=== PATIENT | female | born 1985 | race Caucasian/White ===

== ENCOUNTER 2017-09-13 18:33 | Emergency (ER) | payer MEDICAID, SELFPAY ==
[2017-09-13 18:34] VITALS: BP 160/100; PULSE 82; RESP 16; TEMP 37; O2SAT 96; BMI 45.5
--- NOTE | 2017-09-13 18:56 | ED.VISSUMM ---
- ER Visit Summary Date of Service: 09/13/17 Chief Complaint: [] Scalp abscess History of Present Illness: The patient is a 32 F [] complaining of scalp abscess around the right temporal area beginning approximately 4 days ago. Patient also reports an area on the left scalp that she has had for the last 14 years that has reportedly slowly used every day for the last 14 years. Patient denies fevers. Reports she is concerned because she previously became septic from a gluteal abscess that was left untreated for a long period of time. No other complaints at this time. Patient is conversational during history and physical exam. Physical Examination: [] Afebrile, vital signs stable. 32-year-old female no acute distress. Examination of the head reveals early nonfluctuant abscess in the right temporoparietal area. There is a large left likely chronic sebaceous cyst in the left scalp that does not appear cellulitic no obvious signs of discharge. Remainder of physical examination was unremarkable. Test Results: [] None. Emergency Department Course and Treatment: [] Patient given 800 mg orally of ibuprofen, Bactrim DS, Keflex 500 mg. She was also placed on these same medications via prescription with instructions to follow-up with her primary care physician. Treatment Plan: [] Follow-up with PCP and outpatient antibiotic treatment. Disposition: [] Discharge, stable. Impression: [] Scalp abscess This note was generated with [employer] dictation software. It may contain incorrect words, spelling, and punctuation that were not noted in review of the chart prior to signing ED Disposition - Plan for ED Patient: Chief Complaint: Wound Check Referrals: Annie Woody MD [Primary Care Provider] -
--- NOTE | 2017-09-13 18:59 | ED.DEP ---
ED Disposition - Plan for ED Patient: Disposition: Home or Assisted Living Chief Complaint: Wound Check Diagnosis: Abscess Instructions: ED Abscess Abx Tx Only Ch Prescriptions: Cephalexin [Keflex] 500 mg PO Q6 #40 cap Ibuprofen [Ibu] 800 mg PO TID PRN PRN 10 Days #30 tab PRN Reason: Pain Sulfamethoxazole/Trimethoprim [Bactrim Ds Tablet] 1 ea PO BID #20 tab Referrals: Annie Woody MD [Primary Care Provider] -
[2017-09-13] MEDS: Smz/Tmp Ds Tablet 1 TABLET PO (19:05)
[2017-09-13] MEDS: Ibuprofen 400 MG Tablet 800 MG PO (19:05)
[2017-09-13] MEDS: Cephalexin 250 MG Capsule 500 MG PO (19:05)
[2017-09-13 19:08] VITALS: RESP 18
== END 2017-09-13 19:09 | disposition home or self-care (01) ==
LOC: ED 19:07
PROVIDERS: Emergency Provider Emergency Medicine; Family Provider Internal Medicine; PCP Internal Medicine
DX: L02.811 Cutaneous abscess of head [any part, except face] (principal); Z72.0 Tobacco use
CPT/HCPCS: 99283

== ENCOUNTER 2018-03-06 18:28 | Emergency (ER) | payer SELFPAY ==
[2018-03-06 18:30] VITALS: BP 165/83; PULSE 105; RESP 19; TEMP 36.8; O2SAT 97; BMI 43.0
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
[2018-03-06] MEDS: oxyCODONE 5 MG Tablet PO (18:51)
[2018-03-06] MEDS: Ondansetron ODT 4 MG Tablet PO (18:51)
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
== END 2018-03-06 20:02 | disposition home or self-care (01) ==
LOC: ED 19:33
PROVIDERS: Emergency Provider Emergency Medicine; Family Provider Internal Medicine; PCP Internal Medicine
DX: S06.0X0A Concussion without loss of consciousness, initial encounter (principal); S80.02XA Contusion of left knee, initial encounter; S80.01XA Contusion of right knee, initial encounter; Z72.0 Tobacco use; V43.62XA Car passenger injured in collision with other type car in traffic accident, initial encounter; Y93.I9 Activity, other involving external motion; Y92.410 Unspecified street and highway as the place of occurrence of the external cause; Y99.8 Other external cause status
CPT/HCPCS: 70450; 71046; 73564; 99283

== ENCOUNTER 2018-03-23 21:33 | Emergency (ER) | payer SELFPAY ==
[2018-03-23 21:34] VITALS: BP 163/96; PULSE 96; RESP 15; TEMP 36.4; BMI 40.3
[2018-03-23 22:10] LABS: Bacteria 0 SEEN /hpf (None Seen); Mucous, Urine 0 SEEN /hpf (<or=2+)
[2018-03-23 22:17] LABS: Color, Urine Yellow (Yellow); Glucose, Dipstick Normal (Normal); Ketone-Dipstick 5 mg/dl (Negative); Leukocyte Esterase-Dipstick 500 /ul (Negative); Nitrite-Dipstick Negative (Negative); Occult Blood-Urine 25 /ul (Negative); Protein-Dipstick 15 mg/dl (Negative); Urine Bilirubin Dipstick Negative (Negative); Urine Clarity Sl. Cloudy (Clear); Urine Urobilinogen Normal (Normal)
[2018-03-23 22:26] LABS: Squamous Epithelial Cells - UA 5-10 SEEN /hpf (5-10)
[2018-03-23 22:27] LABS: Red Blood Cells-Urine 0-5 SEEN /hpf (0-5); White Blood Cells 5-10 SEEN /hpf (0-5)
--- NOTE | 2018-03-23 22:45 | ED.VISSUMM ---
- ER Visit Summary Date of Service: 03/23/18 Chief Complaint: [Vaginal discharge and burning] History of Present Illness: The patient is a 33 F [presents to the emergency department with complaint of vaginal discharge, dysuria, and burning. Patient denies any fevers. Patient states that she is had symptoms for 2-3 weeks of some burning and itching. Patient states that she is concerned because she found out that her boyfriend cheated on her with somebody that has been known to have sexually transmitted diseases. Patient denies any fevers. Patient denies any vomiting.] Physical Examination: [HEENT-PERRLA, EOMI. Cranial nerves II through XII grossly intact. TMs clear. Mucous membranes moist. No adenopathy. Cardiovascular-regular rate and rhythm without murmur or ectopy Lungs-clear to auscultation, chest wall stable without crepitus or subcu emphysema Abdomen-normoactive bowel sounds, soft, nontender, no rebound or rigidity, no peritoneal signs. exam-normal external genitalia. On speculum exam she is noted to have moderate amount of white to valenzuela discharge with follow odor noted. Patient has no cervical motion tenderness on exam. No adnexal masses palpated. Mild tenderness over the uterus. Extremities-intact ?4, normal range of motion, normal pulses, atraumatic] Test Results: [SYEDA prep was negative. Wet prep was positive for rare trichomonas and 25-50 WBCs. GC and Chlamydia results are pending. Urinalysis without signs of infection.] Emergency Department Course and Treatment: [Patient was medicated with 1 g of Zithromax p.o. and 250 mg of Rocephin IM. Patient was given 1 dose of Flagyl 500 mg p.o.] Treatment Plan: [Patient will be given a prescription for Flagyl for 7 days and she is advised to have her partner tested and treated.] Disposition: [Discharged home in stable condition. Patient advised to follow-up with her APPLICATION OPERATIONS ENGINEER within next 5-7 days.] Impression: [Bacterial vaginosis] This note was generated with [employer] dictation software. It may contain incorrect words, spelling, and punctuation that were not noted in review of the chart prior to signing ED Disposition - Plan for ED Patient: Chief Complaint: Female C/O Referrals: Annie Woody MD [Primary Care Provider] -
--- NOTE | 2018-03-23 22:48 | ED.DCSUM_ITS ---
- ER Visit Summary Date of Service: 03/23/18 Chief Complaint: [Vaginal discharge and burning] History of Present Illness: The patient is a 33 F [presents to the emergency department with complaint of vaginal discharge, dysuria, and burning. Patient denies any fevers. Patient states that she is had symptoms for 2-3 weeks of some burning and itching. Patient states that she is concerned because she found out that her boyfriend cheated on her with somebody that has been known to have sexually transmitted diseases. Patient denies any fevers. Patient denies any vomiting.] Physical Examination: [HEENT-PERRLA, EOMI. Cranial nerves II through XII grossly intact. TMs clear. Mucous membranes moist. No adenopathy. Cardiovascular-regular rate and rhythm without murmur or ectopy Lungs-clear to auscultation, chest wall stable without crepitus or subcu emphysema Abdomen-normoactive bowel sounds, soft, nontender, no rebound or rigidity, no peritoneal signs. exam-normal external genitalia. On speculum exam she is noted to have moderate amount of white to valenzuela discharge with follow odor noted. Patient has no cervical motion tenderness on exam. No adnexal masses palpated. Mild tenderness over the uterus. Extremities-intact ?4, normal range of motion, normal pulses, atraumatic] Test Results: [SYEDA prep was negative. Wet prep was positive for rare trichomonas and 25-50 WBCs. GC and Chlamydia results are pending. Urinalysis without signs of infection.] Emergency Department Course and Treatment: [Patient was medicated with 1 g of Zithromax p.o. and 250 mg of Rocephin IM. Patient was given 1 dose of Flagyl 500 mg p.o.] Treatment Plan: [Patient will be given a prescription for Flagyl for 7 days and she is advised to have her partner tested and treated.] Disposition: [Discharged home in stable condition. Patient advised to follow-up with her NURSERY SCHOOL TEACHER within next 5-7 days.] Impression: [Bacterial vaginosis] This note was generated with [employer] dictation software. It may contain incorrect words, spelling, and punctuation that were not noted in review of the chart prior to signing ED Disposition - Plan for ED Patient: Chief Complaint: Female C/O Referrals: Annie Woody MD [Primary Care Provider] -
--- NOTE | 2018-03-23 22:48 | ED.DEP ---
ED Disposition - Plan for ED Patient: Chief Complaint: Female C/O Instructions: Vaginal Infection: Bacterial Vaginosis Prescriptions: Metronidazole [Flagyl] 500 mg PO Q8H #21 tab Referrals: Annie Woody MD [Primary Care Provider] - Shaila Tong MD [STAFF PHYSICIAN] - 5-7 Days
[2018-03-23] MEDS: Azithromycin 250 MG Tablet 1000 MG PO (23:13)
[2018-03-23] MEDS: Ceftriaxone 500 MG Vial 250 MG IM (23:13)
[2018-03-23] MEDS: metroNIDAZOLE 500 MG Tablet PO (23:13)
[2018-03-23 23:16] VITALS: BP 136/80; PULSE 88; RESP 16; O2SAT 98
[2018-03-24 00:28] LABS: Chlamydia Trachomatis by PCR Negative (Negative); Probe Check PASS
[2018-03-24 00:29] LABS: Neisserai gonorrhoeae by PCR Negative (Negative); Sample Adequacy Control PASS; Specimen Processing Control PASS
== END 2018-03-23 23:17 | disposition home or self-care (01) ==
LOC: ED 22:08
PROVIDERS: Emergency Provider Emergency Medicine; Family Provider Internal Medicine; PCP Internal Medicine
DX: N76.0 Acute vaginitis (principal); B96.89 Other specified bacterial agents as the cause of diseases classified elsewhere
CPT/HCPCS: 81001; 87210; 87491; 87591; 96372; 99283

== ENCOUNTER 2019-05-05 12:40 | Emergency (ER) | payer MEDICAID, SELFPAY ==
[2019-05-05 12:41] VITALS: BP 128/78; PULSE 85; RESP 14; TEMP 36.6; O2SAT 98; BMI 46.0
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
--- NOTE | 2019-05-05 13:04 | ED.DEP ---
ED Disposition - Plan for ED Patient: Instructions: ABSCESS, Antiobiotic Treatment Only Prescriptions: Smz/Tmp Ds [Bactrim Ds] 1 tab PO BID #20 tab Prescription Printed Cephalexin [Keflex] 500 mg PO Q6 #40 cap Prescription Printed Naproxen [Naprosyn] 500 mg PO BID PRN #20 tab Prescription Printed Referrals: Annie Woody MD [Primary Care Provider] - 3-5 Days Hernando Floyd MD [STAFF PHYSICIAN] - 3-5 Days
[2019-05-05] MEDS: Cephalexin 250 MG Capsule 500 MG PO (13:17)
[2019-05-05] MEDS: Smz/Tmp Ds Tablet 1 TABLET PO (13:17)
== END 2019-05-05 13:17 | disposition home or self-care (01) ==
LOC: ED 13:13
PROVIDERS: Emergency Provider Emergency Medicine; Family Provider Internal Medicine; PCP Internal Medicine
DX: L02.31 Cutaneous abscess of buttock (principal); J45.909 Unspecified asthma, uncomplicated; Z86.14 Personal history of Methicillin resistant Staphylococcus aureus infection; Z72.0 Tobacco use
CPT/HCPCS: 99283

== ENCOUNTER 2019-12-17 01:37 | Emergency (ER) | payer MEDICAID, SELFPAY ==
[2019-12-17 01:38] VITALS: BP 169/91; PULSE 110; RESP 16; TEMP 37; O2SAT 98; BMI 36.8
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
[2019-12-17] MEDS: Fluorescein 1 MG STRIP 1 STRIP OPHTHALMIC (02:13)
[2019-12-17] MEDS: Diphth,Pertuss(Acell),Tet Vac 0.5 ML Vial IM (02:14)
[2019-12-17] MEDS: Erythromycin Base 1 OPTH.TUBE 1 APPLIC LEFT EYE (02:55)
== END 2019-12-17 02:58 | disposition home or self-care (01) ==
PROVIDERS: Emergency Provider Emergency Medicine
DX: S05.02XA Injury of conjunctiva and corneal abrasion without foreign body, left eye, initial encounter (principal); F17.200 Nicotine dependence, unspecified, uncomplicated; Y04.1XXA Assault by human bite, initial encounter
CPT/HCPCS: 90471; 90715; 99283

== ENCOUNTER 2019-12-22 09:49 | Emergency (ER) | payer MEDICAID, SELFPAY ==
[2019-12-22 09:50] VITALS: BP 153/88; PULSE 86; RESP 20; TEMP 36.8; O2SAT 95; BMI 38.0
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
[2019-12-22 10:51] VITALS: O2SAT 98
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
== END 2019-12-22 11:01 | disposition home or self-care (01) ==
LOC: ED 10:20
PROVIDERS: Emergency Provider Emergency Medicine
DX: J06.9 Acute upper respiratory infection, unspecified (principal); F17.200 Nicotine dependence, unspecified, uncomplicated
CPT/HCPCS: 99282

== ENCOUNTER 2020-11-11 13:00 | Emergency (ER) | payer MEDICAID, SELFPAY ==
[2020-11-11 13:02] VITALS: BP 169/102; PULSE 96; RESP 18; TEMP 36.3; O2SAT 97; BMI 38.0
[2020-11-11] MEDS: Lidocaine 1% (20 ml mdv) 20 ML Vial INFILT (14:52)
[2020-11-11] MEDS: Doxycycline 100 MG CAPSULE PO (14:52)
--- NOTE | 2020-11-11 14:54 | EX.ED.DYSGE1 ---
HPI History of Present Illness Chief Complaint: Abscess Detail of Chief Complaint: Multiple abscesses Informant: patient Onset/Context/Timing Onset: Yesterday Context: Sudden Onset Timing: Continuous Quality: Evidence of cellulitis possible 1 or 2 small subcutaneous abscesses. Location: Right axilla, left posterior shoulder region, dorsal right forearm and left Current Severity: Mild Maximum Severity: Mild Worsened by: History of MRSA Relieved by: Nothing Associated Symptoms Associated Symptoms: None Narrative Narrative: Patient 35-year-old woman who comes in to the emergency room for evaluation of abscess/abscesses. She denies fever, chills night sweats. She denies history of hypertension, diabetes or being immune suppressed. 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 She has had prior MRSA infections. She denies HEENT, respiratory, cardiac or GI symptoms. She denies urologic symptoms. Prior similar symptoms: Yes Recent Illness/Hospitalization: No PFSH PFSH Medical History Anxiety Asthma Hypertension Polycystic ovaries Sebaceous cyst Home Medications cephalexin 500 mg PO Q6 #40 cap 05/05/19 [Rx Last Taken Unknown] naproxen 500 mg PO BID PRN #20 tab 05/05/19 [Rx Last Taken Unknown] sulfamethoxazole-trimethoprim 1 tab PO BID #20 tab 05/05/19 [Rx Last Taken Unknown] amoxicillin-pot clavulanate 1 ea PO BID #14 tab 12/17/19 [Rx Last Taken Unknown] albuterol sulfate 1 - 2 puff INHALATION Q4H PRN PRN #1 inhaler 12/22/19 [Rx Last Taken Unknown] pseudoephedrine-guaifenesin 1 ea PO BID #14 tab.er.12h 12/22/19 [Rx Last Taken Unknown] doxycycline monohydrate 100 mg PO BID #14 capsule 11/11/20 [Rx Last Taken Unknown] mupirocin 1 applic TOPICAL BID #22 g 11/11/20 [Rx Last Taken Unknown] Allergy/AdvReac Type Severity Reaction Status Date / Time hydrocodone bitartrate Allergy Hives Verified 11/11/20 13:05 [From Vicodin] Family History Grandmother Hypertension Heart disease Myocardial infarction Mother Anxiety Uncle Blood clotting disorder Surgical History H/O oral surgery I&D of rt. buttock abcess surgery on tail bone Social History Smoking Status: Current every day smoker tobacco type: cigarettes alcohol intake: never substance use type: marijuana what type of physical activity do you participate in: none ROS ROS ED Constitutional Constitutional ED: Denies chills, fever(s), subjective, sweats or weight loss Eyes Eyes: Denies blurry vision, change in vision or diplopia ENT ENT ED: Denies ear pain, rhinorrhea or sore throat Cardiovascular Cardiovascular: Denies chest pain or palpitations Respiratory/Chest Respiratory/Chest: Denies cough, dyspnea or dyspnea on exertion Gastrointestinal Gastrointestinal: Denies abdominal pain, nausea or vomiting Genitourinary Genitourinary ED: Denies dysuria, hematuria or urinary frequency Musculoskeletal Musculoskeletal: Denies arthralgias or myalgias Integumentary Reports abscess, Abrasions and rash Neurologic Neurologic: Denies headache(s), paresthesias or weakness Hematologic/Lymphatic Hematologic/Lymphatic: Reports none; Denies anemia or easy bleeding EXAM Physical Exam Const Vital Signs: 11/11/20 13:02 11/11/20 15:02 Temperature 97.4 F L Temperature Source Temporal Pulse Rate 96 Respiratory Rate 18 Blood Pressure 169/102 H 137/73 H Blood Pressure Mean 124 94 Pulse Ox 97 Oxygen Delivery Method Room Air Positive well nourished, well developed and obese General Appearance ED: well developed and NAD; Negative for pallor Nutritional Appearance: obese HEENT Reports TM's clear and moist mucous membranes Negative for trauma or tenderness Tympanic Membrane ED: Yes TM's clear Eyes PERRL and EOMs intact bilaterally General Eye ED: Negative for pale conjunctiva or scleral icterus Neck no lymphadenopathy, supple and no JVD Chest Wall inspection of chest normal Resp normal respiratory effort and clear to auscultation bilaterally Cardio regular rate, regular rhythm, S1 normal heart sound, S2 normal heart sound and no murmurs GI normal to inspection, nondistended, normoactive bowel sounds GI Narrative: There is an area of cellulitis that is 2 x 4 cm. There is no fluctuance. There is an eschar due to patient scratching the area. Back/Spine Cervical Spine: Negative for cervical spine tenderness Thoracic Spine / Upper Back: Negative for thoracic spinal tenderness or paraspinal muscle tenderness Lumbar Spine / Lower Back: Negative for lumbar spinal tenderness Extremity Negative for normal to inspection Extremity Narrative: Patient has areas of abrasion and infection most likely cellulitis. There is 1 possible small subcutaneous abscess. There is 6 of these lesions noted posterior left shoulder. Patient also has an area posterior axillary line General Extremety ED: Yes other findings; Negative for edema or tenderness General Extremity: other findings; Negative for edema Neuro oriented x3, CN's II-XII intact bilaterally and no sensory deficits noted Sensorium / Orientation: alert Motor Exam: strength 5/5 throughout Psych mental status grossly normal Skin No no rashes or lesions noted, No no wounds and skin turgor normal General Skin Exam: Negative for jaundice or pallor Rashes: rashes noted Trauma: abrasion Wounds: wounds noted MDM MDM MDM Narrative Medical decision making narrative: Patient has multiple areas of cellulitis due to due to scratching and suspect since she is a MRSA carrier that she has self inoculated her area. There was an abscess in the right axilla which spontaneously drained. There is surrounding cellulitis. There is multiple areas of cellulitis. There is 1 or 2 areas of concern for abscess. Will anesthetize is areas and make a small shelly. If there is evidence of abscess will perform a formal I&D. Please read procedure note she was treated with doxycycline. Will treat with ointment to be placed in the nose since she is a known carrier. Procedures Other Procedures Procedure(s): Patient was anesthetized 1% lidocaine posterior axillary line inferior to the right axilla and one of the lesions left shoulder. The area was incised with a 15 blade. Small incisions were made since these were superficial and the subcu tissue appeared normal. None of the other lesions were incised or drained. Discharge Plan Triage Chief Complaint: Abscess ED Provider: Earnest Francisco Dx/Rx/DC Orders Clinical Impression: Abscess of skin and subcutaneous tissue, Cellulitis Instructions: Abscess Drainage, ED Cellulitis Prescriptions: New doxycycline monohydrate 100 MG capsule 100 mg PO BID Qty: 14 RF: 0 mupirocin 2 % ointment 1 applic topical BID Qty: 22 RF: 0 No Action sulfamethoxazole-trimethoprim 1 TABLET tablet 1 tab PO BID Qty: 20 RF: 0 cephalexin 500 MG capsule 500 mg PO Q6 Qty: 40 RF: 0 naproxen 500 MG tablet 500 mg PO BID PRN Qty: 20 RF: 0 amoxicillin-pot clavulanate 1 EACH tablet 1 ea PO BID Qty: 14 RF: 0 albuterol sulfate 1 INHALER inhaler 1 - 2 puff inhalation Q4H PRN PRN (Reason: Wheezing) Qty: 1 RF: 0 pseudoephedrine-guaifenesin 1 EACH tablet extended release 12 hr 1 ea PO BID Qty: 14 RF: 0 Primary Care Provider: Care Physician,No Primary Referrals: Oliver Abdul MD [STAFF PHYSICIAN] - 2 Days for wound check Care Physician,No Primary [Primary Care Provider] - Disposition Disposition: Home, Self Care
[2020-11-11 15:02] VITALS: BP 137/73
== END 2020-11-11 16:05 | disposition home or self-care (01) ==
PROVIDERS: Emergency Provider Emergency Medicine
DX: L02.411 Cutaneous abscess of right axilla (principal); L03.111 Cellulitis of right axilla; L02.414 Cutaneous abscess of left upper limb; Z22.322 Carrier or suspected carrier of Methicillin resistant Staphylococcus aureus; I10 Essential (primary) hypertension; J45.909 Unspecified asthma, uncomplicated; F41.9 Anxiety disorder, unspecified; E66.9 Obesity, unspecified; F17.210 Nicotine dependence, cigarettes, uncomplicated; Z86.14 Personal history of Methicillin resistant Staphylococcus aureus infection
CPT/HCPCS: 10060; 99283